=== PATIENT | male | born 1995 | race Caucasian/White ===

== ENCOUNTER 2016-09-02 07:23 | Emergency (ER) | payer OTHER ==
[~2016-09-02] VITALS: Ht 177.8 cm; Wt 70.0 kg
[2016-09-02 07:26] VITALS: TEMP 36.4; Ht 177.8 cm; Wt 70.0 kg
[2016-09-02] MEDS ORDERED: FAMOTIDINE IV INJ 20 MG in DEXTROSE 5% 100ML 100 ML IV STA (07:38)
[2016-09-02] MEDS: ALUMINUM/MAGNESIUM SUSP 30 ML UDC PO STA ×2 (07:38→07:48)
[2016-09-02] MEDS: LIDOCAINE HCL 2% VISC SOLN 20 ML UDC PO STA ×2 (07:38→07:48)
[2016-09-02] MEDS ORDERED: ONDANSETRON INJ 2 MG/ML 2 ML VIAL IV STA (07:38)
[2016-09-02] MEDS ORDERED: SODIUM CHLORIDE 0.9% 1000ML 1,000 ML IV STA (07:38)
[2016-09-02] MEDS ORDERED: MoRPHine SULFATE 4 MG/ML 1 ML CARP\\VIAL IV STA (07:41)
[2016-09-02] MEDS ORDERED: FAMOTIDINE 20MG/102 ML D5W ONE (07:50)
[2016-09-02 07:54] LABS: BASO % 0.1 %; BASO ABS # 0.02 K/uL (0-0.2); COMPLETE YES; EOS % 0.6 %; HEMATOCRIT 46.6 % (42-52); IG% 0.6 %; LYMPH % 5.5 %; LYMPH ABS # 0.96 K/uL (1.2-3.4); MEAN CELL VOLUME 85.5 fL (80-100); MEAN CORPUSCULAR HEMOGLOBIN 31.6 pg (25-34); MEAN CORPUSCULAR HGB CONC 36.9 g/dl (32-36); MEAN PLATELET VOLUME 9.5 fL (7.4-10.4); MONO % 7.8 %; NEUT % 85.4 %; PLATELET COUNT 400 K/uL (130-400); RED BLOOD COUNT 5.45 M/uL (4.7-6.1); WHITE BLOOD COUNT 17.57 K/uL (4.8-10.8)
[2016-09-02] MEDS ORDERED: LISD20CA PO (07:59)
--- NOTE | 2016-09-02 08:38 | DIAGNOSTIC IMAGING REPORT ---
PA CHEST WITH ABDOMINAL SERIES CLINICAL HISTORY: Epigastric abdominal pain. Nausea and vomiting. FINDINGS: A PA chest radiograph is obtained. No prior studies are available for comparison at the time of dictation. The cardiomediastinal silhouette is unremarkable. The lungs and pleural spaces are clear. No pneumothorax is seen. The bony thorax is grossly intact. Supine and erect abdominal radiographs are obtained. No prior studies are available for comparison at the time of dictation. There is a nonobstructed abdominal bowel gas pattern. No evidence of intraperitoneal free air is seen. There is rectosigmoid fecal impaction. No abnormal abdominal calcifications are identified. The lumbosacral spine and bony pelvis appear intact. IMPRESSION: 1. No active disease in the chest. 2. Nonobstructed abdominal bowel gas pattern noting rectosigmoid fecal impaction. Electronically signed by: Seb Pierre M.D. 09/02/2016 8:37 AM Dictated Date/Time: 09/02/2016 8:35 AM
[2016-09-02] MEDS ORDERED: PROMETHAZINE HCL INJ 25 MG in SODIUM CHLORIDE 0.9% 50ML 50 ML IV STA (08:42)
[2016-09-02 08:53] LABS: BUN/CREATININE RATIO 15.4 (10-20); CALCIUM 9.6 mg/dl (8.5-10.1); CREATININE 1.1 mg/dl (0.60-1.40); POTASSIUM 3.9 mmol/L (3.5-5.1)
[2016-09-02] MEDS ORDERED: MoRPHine SULFATE 4 MG/ML 1 ML CARP\\VIAL IV PRN (09:30)
[2016-09-02] MEDS ORDERED: OPTIRAY 320 IV PRN (09:45)
--- NOTE | 2016-09-02 12:33 | DIAGNOSTIC IMAGING REPORT ---
CT SCAN OF THE ABDOMEN AND PELVIS WITH IV CONTRAST CLINICAL HISTORY: Generalized abdominal pain. COMPARISON STUDY: Abdominal radiographs dated 09/02/2016. TECHNIQUE: Following the IV administration of 119 cc of Optiray 320, CT scan of the abdomen and pelvis is performed from the lung bases to the proximal femora. Images are reviewed in the axial, sagittal, and coronal planes. IV contrast was administered without complication. Automated dose control exposure was utilized. CT DOSE: 276.87 mGy.cm FINDINGS: Lung bases: The heart is normal in size and without pericardial effusion. The lung bases are clear. Liver: The contrast-enhanced liver is normal in size, contour, and attenuation. There is no intrahepatic biliary ductal dilatation. The hepatic veins and portal veins are patent. Gallbladder: Unremarkable. Spleen: Normal in size and attenuation. Pancreas: Unremarkable. Adrenal glands: Unremarkable. Kidneys: The contrast enhanced kidneys are normal in size and without hydronephrosis. The kidneys enhance symmetrically. Abdominal vasculature: The abdominal aorta is normal in course and caliber. Bowel: There is no bowel obstruction. Rectosigmoid fecal impaction is observed. Moderate fecal retention is seen throughout the remainder of the colon. Liquid stool is noted in the right colon. There is no colonic wall thickening or pericolonic inflammation. The appendix is well-visualized and normal. Peritoneum: There is no intraperitoneal free air or abdominal ascites. There is a small fat-containing umbilical hernia. Lymphadenopathy: None. Pelvic viscera: The bladder, prostate, and seminal vesicles are normal as visualized. Skeletal structures: No lytic or blastic lesions are seen. IMPRESSION: 1. There is rectosigmoid fecal impaction, with moderate fecal retention seen throughout the remainder of the colon. 2. Liquid stool is noted in the right colon. Correlate clinically for evidence of a diarrheal illness. Electronically signed by: Seb Pierre M.D. 09/02/2016 12:31 PM Dictated Date/Time: 09/02/2016 12:28 PM
[2016-09-02] MEDS ORDERED: PROM25TA9 PO (16:57)
--- NOTE | 2016-09-02 17:04 | EMERGENCY ROOM VISIT NOTE ---
History First contact with patient: 07:32 Chief Complaint: VOMITING Stated Complaint: VOMITING,UPPER ABD PAIN,CHILLS,FEVER Nursing Triage Summary: Pt c/o severe mid epigastric pain at 0400 and then he vomited. Pain less severe. Chills, History of Present Illness The patient is a 21 year old male, history of celiac disease, who presents to the Emergency Room with complaints of severe epigastric pain, nausea, vomiting and chills. The patient reports that his discomfort started around 4 AM this morning. The patient also complains of mild right upper quadrant and midepigastric pain. The patient denies any diarrhea. He also denies any urinary symptoms. The patient has previously been treated by Dr. Alexandra with his last EGD performed in 2014. He rates his discomfort a 6 out of 10. He denies any recent sick contacts or foreign travel. Review of Systems HEENT: Denies dizziness, visual problems, hearing loss, tinnitus. Denies difficulty swallowing or oral lesions. PULMONARY: Denies cough, shortness of breath, sputum production or hemoptysis. CARDIOVASCULAR: Denies chest pain, palpitations, dyspnea on exertion, orthopnea or peripheral edema. GASTROINTESTINAL: See history of present illness. Denies diarrhea or constipation. GENITOURINARY: Denies dysuria, frequency, urgency or nocturia. NEUROLOGIC: Denies history of epilepsy, CVA, TIA or chronic headaches. MUSCULOSKELETAL: Denies history of joint tenderness/swelling. SKIN: Denies rashes or lesions. PSYCHIATRIC: Denies history of depression or mental illness. ENDOCRINE: Denies history of diabetes or thyroid disorders. Past Medical/Surgical History Medical Problems: (1) Celiac Disease Surgical Problems: (1) No history of previous surgery Family History Unremarkable Social History Smoking Status: Never Smoker Alcohol Use: none Marital Status: single Occupation Status: [employer] student Current/Historical Medications Scheduled Lisdexamfetamine Dimesylate (Vyvanse), 20 MG PO DAILY Scheduled PRN Promethazine Hcl (Phenergan), 25 MG PO Q4H PRN for Nausea Allergies Coded Allergies: Gluten (Verified Allergy, Severe, Celiac, 09/02/16) Physical Exam Vital Signs Date Time Temp Pulse Resp B/P Pulse Ox O2 Delivery O2 Flow Rate FiO2 09/02/16 15:15 77 18 107/57 99 Room Air 09/02/16 14:04 81 18 113/52 98 Room Air 09/02/16 09:31 85 16 97/48 96 Room Air 09/02/16 08:13 83 16 98/50 96 Room Air 09/02/16 07:26 36.4 100 20 138/65 100 Room Air Physical Exam CONSTITUTIONAL: Healthy and well nourished. Alert and oriented X 3 with positive affect. Patient appears in moderately severe discomfort with abdominal pain and bilious vomiting. HEENT: Normocephalic, atraumatic. Pupils equal, round and reactive. Ears and nares are clear. No scleral icterus, conjunctival injection/pallor or subconjunctival hemorrhage. Ears and nares are otherwise clear. OROPHARYNX: No tonsillar hypertrophy or exudates. NECK: Full active range of motion without discomfort. RESPIRATORY: Clear to auscultation bilaterally with no wheezing, crackles, rhonchi or stridor. CARDIOVASCULAR: Regular rate and rhythm with no murmurs, rubs or gallops. GASTROINTESTINAL: Bowel sounds present in all quadrants. Vision has diffuse tenderness to palpation of the abdomen without focal findings. Negative Calzada sign. Negative CVA tenderness. Negative McBurney's point tenderness. No rigidity, guarding or rebound. MUSCULOSKELETAL: Full range of motion of all joints without discomfort. INTEGUMENTARY: No rash or other significant dermatologic conditions noted. HEMATOLOGIC: No ecchymosis or petechiae noted. NEUROLOGIC: No focal neurologic deficits noted. Medical Decision & Procedures ER Provider Diagnostic Interpretation: My interpretation of an abdomen obstruction series does not show any obstructive pattern or free air. Rectosigmoid fecal impaction is suggested. Radiologist report is as follows: PA CHEST WITH ABDOMINAL SERIES CLINICAL HISTORY: Epigastric abdominal pain. Nausea and vomiting. FINDINGS: A PA chest radiograph is obtained. No prior studies are available for comparison at the time of dictation. The cardiomediastinal silhouette is unremarkable. The lungs and pleural spaces are clear. No pneumothorax is seen. The bony thorax is grossly intact. Supine and erect abdominal radiographs are obtained. No prior studies are available for comparison at the time of dictation. There is a nonobstructed abdominal bowel gas pattern. No evidence of intraperitoneal free air is seen. There is rectosigmoid fecal impaction. No abnormal abdominal calcifications are identified. The lumbosacral spine and bony pelvis appear intact. IMPRESSION: 1. No active disease in the chest. 2. Nonobstructed abdominal bowel gas pattern noting rectosigmoid fecal impaction. CT of the abdomen and pelvis with IV contrast again shows significant rectosigmoid impaction. No other obstructive pattern or free air noted. Radiologist report is as follows: CT SCAN OF THE ABDOMEN AND PELVIS WITH IV CONTRAST CLINICAL HISTORY: Generalized abdominal pain. COMPARISON STUDY: Abdominal radiographs dated 09/02/2016. TECHNIQUE: Following the IV administration of 119 cc of Optiray 320, CT scan of the abdomen and pelvis is performed from the lung bases to the proximal femora. Images are reviewed in the axial, sagittal, and coronal planes. IV contrast was administered without complication. Automated dose control exposure was utilized. CT DOSE: 276.87 mGy.cm FINDINGS: Lung bases: The heart is normal in size and without pericardial effusion. The lung bases are clear. Liver: The contrast-enhanced liver is normal in size, contour, and attenuation. There is no intrahepatic biliary ductal dilatation. The hepatic veins and portal veins are patent. Gallbladder: Unremarkable. Spleen: Normal in size and attenuation. Pancreas: Unremarkable. Adrenal glands: Unremarkable. Kidneys: The contrast enhanced kidneys are normal in size and without hydronephrosis. The kidneys enhance symmetrically. Abdominal vasculature: The abdominal aorta is normal in course and caliber. Bowel: There is no bowel obstruction. Rectosigmoid fecal impaction is observed. Moderate fecal retention is seen throughout the remainder of the colon. Liquid stool is noted in the right colon. There is no colonic wall thickening or pericolonic inflammation. The appendix is well-visualized and normal. Peritoneum: There is no intraperitoneal free air or abdominal ascites. There is a small fat-containing umbilical hernia. Lymphadenopathy: None. Pelvic viscera: The bladder, prostate, and seminal vesicles are normal as visualized. Skeletal structures: No lytic or blastic lesions are seen. IMPRESSION: 1. There is rectosigmoid fecal impaction, with moderate fecal retention seen throughout the remainder of the colon. 2. Liquid stool is noted in the right colon. Correlate clinically for evidence of a diarrheal illness. Laboratory Results 09/02/16 07:40 Red Blood Count 5.45, Mean Corpuscular Volume 85.5, Mean Corpuscular Hemoglobin 31.6, Mean Corpuscular Hemoglobin Concent 36.9, Mean Platelet Volume 9.5, Neutrophils (%) (Auto) 85.4, Lymphocytes (%) (Auto) 5.5, Monocytes (%) (Auto) 7.8, Eosinophils (%) (Auto) 0.6, Basophils (%) (Auto) 0.1, Neutrophils # (Auto) 15.01, Lymphocytes # (Auto) 0.96, Monocytes # (Auto) 1.37, Eosinophils # (Auto) 0.11, Basophils # (Auto) 0.02 09/02/16 07:40 Test 09/02/16 07:40 White Blood Count 17.57 K/uL (4.8-10.8) Red Blood Count 5.45 M/uL (4.7-6.1) Hemoglobin 17.2 g/dL (14.0-18.0) Hematocrit 46.6 % (42-52) Mean Corpuscular Volume 85.5 fL (80-100) Mean Corpuscular Hemoglobin 31.6 pg (25-34) Mean Corpuscular Hemoglobin Concent 36.9 g/dl (32-36) Platelet Count 400 K/uL (130-400) Mean Platelet Volume 9.5 fL (7.4-10.4) Neutrophils (%) (Auto) 85.4 % Lymphocytes (%) (Auto) 5.5 % Monocytes (%) (Auto) 7.8 % Eosinophils (%) (Auto) 0.6 % Basophils (%) (Auto) 0.1 % Neutrophils # (Auto) 15.01 K/uL (1.4-6.5) Lymphocytes # (Auto) 0.96 K/uL (1.2-3.4) Monocytes # (Auto) 1.37 K/uL (0.11-0.59) Eosinophils # (Auto) 0.11 K/uL (0-0.5) Basophils # (Auto) 0.02 K/uL (0-0.2) RDW Standard Deviation 38.6 fL (36.4-46.3) RDW Coefficient of Variation 12.4 % (11.5-14.5) Immature Granulocyte % (Auto) 0.6 % Immature Granulocyte # (Auto) 0.10 K/uL (0.00-0.02) Anion Gap 13.0 mmol/L (3-11) Est Creatinine Clear Calc Drug Dose 105.2 ml/min Estimated GFR () 110.6 Estimated GFR (Non- 95.5 BUN/Creatinine Ratio 15.4 (10-20) Calcium Level 9.6 mg/dl (8.5-10.1) Total Bilirubin 0.8 mg/dl (0.2-1) Direct Bilirubin 0.2 mg/dl (0-0.2) Aspartate Amino Transf (AST/SGOT) 15 U/L (15-37) Alanine Aminotransferase (ALT/SGPT) 28 U/L (12-78) Alkaline Phosphatase 74 U/L (45-117) Total Creatine Kinase 74 U/L (39-308) Total Protein 8.4 gm/dl (6.4-8.2) Albumin 4.6 gm/dl (3.4-5.0) Lipase 124 U/L (73-393) The above labs were reviewed. The patient has a notable leukocytosis with left shift and bandemia. Partial renal profile, LFTs and lipase are normal. Medications Administered Medications (Trade) Dose Ordered Sig/Nesha Route Start Time Stop Time Status Last Admin Dose Admin Sodium Chloride (Nss 1000ml) 1,000 ml @ 999 mls/hr Q1H1M STAT IV 09/02/16 07:38 09/02/16 08:38 DC 09/02/16 07:48 999 MLS/HR Ondansetron HCl (Zofran Inj) 4 mg NOW STAT IV 09/02/16 07:38 09/02/16 07:41 DC 09/02/16 07:48 4 MG Morphine Sulfate (MoRPHine SULFATE INJ) 4 mg NOW STAT IV 09/02/16 07:41 09/02/16 07:42 DC 09/02/16 07:54 4 MG Famotidine 20 mg 20 mg STK-MED ONCE .ROUTE 09/02/16 07:50 09/02/16 07:52 DC 09/02/16 07:54 20 MG Promethazine HCl/ Sodium Chloride (Phenergan Inj/ Nss 50ml) 51 ml @ 204 mls/hr NOW STAT IV 09/02/16 08:42 09/02/16 08:56 DC 09/02/16 08:56 204 MLS/HR Procedure 1. IV hydration: The patient received a liter normal saline bolus 2. IV medications: The patient was initially administered Zofran 4 mg, Pepcid 20 mg and morphine 4 mg IVP. With persistent nausea, he was then administered Phenergan 25 mg IVP which well-controlled the nausea. ED Course Patient history and physical exam were performed. Nurse's notes were reviewed. Vital signs were reviewed and were normal. IV access was established, and labs were drawn. The patient was hydrated with normal saline, and received IV medications as discussed in the previous Procedure section. Review of labs shows notable leukocytosis with left shift and bandemia. Partial renal profile , LFTs and lipase are normal. An abdomen obstruction series with PA chest reveals no obstructive pattern or free air. Rectosigmoid fecal impaction is noted. Review of labs shows a significant leukocytosis with left shift. With an elevated white count and history of celiac disease, I did discuss the case extensively with Dr. Holland, ED attending physician, who suggested enhanced CT of the abdomen and pelvis. As the patient was ingesting his oral contrast, he became nauseated and vomited. The patient was then administered IV Phenergan which better controlled the nausea and pain. At this point, his CT was switched to an IV contrast study, which again showed rectosigmoid impaction. No additional findings are noted except for right sided requested stool. At this point, I elected to order a soapsuds enema. The patient went through 2 rounds, and had significant stool output. He reported significant reduction of his pain and nausea. Throughout this evaluation, I did speak with the mother several times. The mother is a nurse. She requested that I also speak with Dr. Alexandra, stating that she call the office and was told that the emergency department should consult Dr. Alexandra for evaluation. I did speak with Dr. Alexandra who was in the endo suite. I did advise him that the patient is currently on prednisone, and that his white count is markedly elevated. He suspects that the prednisone caused this. He reports that GI typically does not treat celiac disease with corticosteroids. Reviewing the CT studies, he reports that his symptoms are likely being caused by rectosigmoid stool, and reported that the enema should resolve his symptoms. If the patient does not have complete relief, he encouraged use of magnesium citrate. The patient will contact the office for further follow-up. Upon further questioning of the mother and patient, the patient was taking prednisone for a recent sinusitis. At the time of dictation, the patient was feeling better and will be discharged. He was provided a prescription for Phenergan to prevent nausea. He was also encouraged to buy a bottle of magnesium citrate if his symptoms return. He was provided contact information for Dr. Alexandra for outpatient follow- up. The patient was advised that he could certainly return to the emergency department at any time for any worsening symptoms. The patient was happy with plan of care, and voiced understanding of all discharge instructions. Medical Decision See previous section. I suspect the patient's discomfort, and likely nausea, is from the significant fecal impaction of the rectosigmoid region. I also suspect that his leukocytosis is from the recent prednisone use. The skin does not show any other acute findings, including diverticulitis, appendicitis or free air. Impression Primary Impression: Nausea & vomiting Additional Impressions: Constipation Celiac disease Departure Information Prescriptions Promethazine Hcl (Phenergan) 25 Mg Tab 25 MG PO Q4H Y for Nausea, #30 TAB Prov: Jonnie Rowell PA 09/02/16 Referrals No Doctor, Assigned (PCP) Patient Instructions [facility] Problem Qualifiers Primary Impression: Nausea & vomiting Vomiting type: bilious vomiting Qualified Codes: R11.14 - Bilious vomiting Additional Impressions: Constipation Constipation type: unspecified constipation type Qualified Codes: K59.00 - Constipation, unspecified
[2016-09-02 17:56] VITALS: BP 113/68; PULSE 76; O2SAT 98
== END 2016-09-02 17:57 | disposition home or self-care (01) ==
LOC: C.EDB 07:25
DX: K59.00 Constipation, unspecified (principal); R11.14 Bilious vomiting; K90.0 Celiac disease; Z79.899 Other long term (current) drug therapy

== ENCOUNTER → 2016-09-03 | Outpatient (CLI) | payer OTHER ==
[~2016-09-03] MED LIST: LISD20CA PO; PROM25TA9 PO
[2016-09-03 15:08] LABS: ALB/GLOB RATIO 1.1 (0.9-2); ALKALINE PHOSPHATASE 61 U/L (45-117); ALT/SGPT 26 U/L (12-78); AST/SGOT 16 U/L (15-37); BLOOD UREA NITROGEN 11 mg/dl (7-18); BUN/CREATININE RATIO 10.4 (10-20); CALCIUM 9.5 mg/dl (8.5-10.1); CARBON DIOXIDE 28 mmol/L (21-32); CHLORIDE 102 mmol/L (98-107); GLUCOSE 77 mg/dl (70-99); POTASSIUM 4.2 mmol/L (3.5-5.1); SODIUM 138 mmol/L (136-145)
[2016-09-03 15:15] LABS: BASO % 0.2 %; BASO ABS # 0.01 K/uL (0-0.2); COMPLETE YES; EOS % 4.1 %; HEMATOCRIT 44.1 % (42-52); IG% 0.6 %; LYMPH % 22.6 %; LYMPH ABS # 1.15 K/uL (1.2-3.4); MEAN CELL VOLUME 89.8 fL (80-100); MEAN CORPUSCULAR HEMOGLOBIN 31.8 pg (25-34); MEAN CORPUSCULAR HGB CONC 35.4 g/dl (32-36); MEAN PLATELET VOLUME 9.9 fL (7.4-10.4); MONO % 13.8 %; NEUT % 58.7 %; PLATELET COUNT 359 K/uL (130-400); RED BLOOD COUNT 4.91 M/uL (4.7-6.1); WHITE BLOOD COUNT 5.08 K/uL (4.8-10.8)
[2016-09-08 16:35] LABS: IGA SERUM 319 mg/dL (81-463); TIS TRANS IGA 1 U/mL (<4)
== END | disposition home or self-care (01) ==
LOC: C.LAB1850 12:30
PROVIDERS: ATTEND Internal Medicine
DX: K90.0 Celiac disease (principal); R19.7 Diarrhea, unspecified